=== PATIENT | female | born 1950 | race Caucasian/White ===

== ENCOUNTER 2020-04-29 11:17 | Outpatient (NON) | payer MEDICARE, SELFPAY ==
[2020-04-29 11:33] LABS: Basophils Absolute Auto 0.02 K/mm3 (0.00-0.10); Basophils Percent Auto 0.2 % (0.0-1.0); Hematocrit 34.3 % (35.0-42.0); Hemoglobin 12.5 g/dL (11.7-13.8); Immature Granulocyte Absolute 0.08 K/mm3 (0.00-0.00); Immature Granulocyte Percent A 0.9 % (0.0-0.0); Lymphocytes Absolute Auto 0.15 K/mm3 (1.10-4.50); Lymphocytes Percent Auto 1.7 % (18.0-42.0); Mean Corpuscular HGB Conc 36.4 g/dL (32.0-36.0); Mean Corpuscular Hemoglobin 32.3 pg (27.0-31.0); Mean Corpuscular Volume 88.6 fL (78.0-102.0); Mean Platelet Volume 10.2 fl (9.2-11.8); Monocytes Absolute Auto 0.53 K/mm3 (0.10-0.90); Monocytes Percent Auto 5.9 % (2.0-11.0); Neutrophils Absolute Auto 8.2 K/mm3 (1.7-7.2); Neutrophils Percent Auto 91.3 % (50.0-70.0); Platelet Count Result 154 K/mm3 (150-420); Red Blood Count 3.87 M/mm3 (4.20-5.40); Red Cell Distribution Width 12.4 % (11.6-14.4)
[2020-04-29 11:49] LABS: Alanine Aminotransferase 24 U/L (14-59); Alkaline Phosphatase 49 U/L (46-116); Anion Gap 14.2 mmol/L (7-16); Aspartate Amino Transferase 39 U/L (15-37); Bilirubin,Total 1.3 mg/dL (0.00-1.00); Blood Urea Nitrogen 35 mg/dL (7-18); Calcium 8.3 mg/dL (8.5-10.1); Carbon Dioxide 27 mmol/L (21-32); Chloride 84 mmol/L (98-108); Estimated Glomerular Filt Rate 22; Glucose 127 mg/dL (70-99); Osmolality Calculated 264 mOsm/kg (285-295); Potassium 3.2 mmol/L (3.5-5.1); Sodium 122 mmol/L (136-145); Total Protein 6.3 g/dL (6.4-8.2)
== END 2020-04-29 11:18 ==
LOC: CHSLAB 11:18
PROVIDERS: PCP Nurse Practitioner Family; Visit Provider Nurse Practitioner Family
DX: K52.9 Noninfective gastroenteritis and colitis, unspecified (principal); R53.1 Weakness
CPT/HCPCS: 36415; 80053; 83735; 85025

== ENCOUNTER 2020-04-29 14:07 | Inpatient (IN) | payer MEDICARE, SELFPAY ==
[2020-04-29] VITALS (11 sets, daily range): BP systolic 76–109; BP diastolic 38–55; PULSE 74–89; RESP 12–18; TEMP 36.9–37.5; O2SAT 96–99; BMI 35.0
--- NOTE | ~2020-04-29 | CT_ITS ---
EXAMINATION: CT brain wo con INDICATION: Generalized weakness COMPARISON: None TECHNIQUE: Standard unenhanced head CT. The dose-length product (DLP) was 605.33 mGy-cm. The mA was a djusted according to patient size. Iterative reconstruction technique was employed. FINDINGS: There is no acute intraparenchymal hemorrhage. No evidence of mass lesion. No evidence of a cute infarction. There is mild periventricular and subcortical hypodensity probably related to small vessel ischemic disease. There is mild prominence of the sulci and ventricles related to cerebral atr ophy. Intracranial calcified cerebral atherosclerosis is noted. There are no extra-axial collections. There is no mass effect or midline shift. Changes in the globes are likely from ocular lens surgery. The visualized sinuses and mastoid air cells are well aerated. IMPRESSION: 1. No acute intracranial abnormality. 2. Age related findings. Reviewed, dictated and finalized at location A.
--- NOTE | 2020-04-29 15:03 | ED.RECABL ---
HPI - Recheck/Abnormal Lab/Rx General Chief Complaint: Recheck/Abnormal Lab/Rx Stated Complaint: sent by for bad lab results Time Seen by Provider: 04/29/20 15:04 Source: patient Mode of arrival: wheelchair Limitations: no limitations History of Present Illness HPI narrative: 69-year-old woman with a history of hypertension comes in today after being seen at her primary care office. She was fine to have hyponatremia, hypomagnesemia, hypokalemia and acute renal injury. She states that she ate a salad at a restaurant 4 days ago and 3 days ago she developed vomiting, weakness and diarrhea. She states that she has had no vomiting since then but she has had diarrhea daily. She denies rash, blood in her vomitus, melena, blood in her stools, abdominal pain, syncope, and fever. MD complaint: abnormal lab Initial visit (ago): day(s) ( Today) Initial visit for: other ( diarrhea, weakness) Returns today for: called because of abnormal lab/test Symptoms since prior visit: no new symptoms Context: called for abnormal lab result Associated symptoms: malaise Related Data Home Medications Medication Instructions Recorded Confirmed atorvastatin 40 mg tablet 40 mg PO DAILY 11/13/19 04/29/20 calcium carbonate-vitamin D3 600 2 tablet PO DAILY tablet 11/13/19 04/29/20 mg(1,500 mg)-400 unit chewable tablet metoprolol tartrate 25 mg tablet 25 mg PO BID tablet 11/13/19 04/29/20 vitamin B complex 1 tablet PO DAILY 04/29/20 04/29/20 Allergies Allergy/AdvReac Type Severity Reaction Status Date / Time No Known Allergies Allergy Verified 04/29/20 10:38 Review of Systems Constitutional: Constitutional: Denies chills, Reports fatigue, Denies fever(s) and Reports weakness Eyes: Eyes: Denies change in vision and Denies photophobia ENT: Denies dysphagia, Denies nasal congestion and Denies sore throat Cardiovascular: Cardiovascular: Denies chest pain and Denies radiating jaw, neck or arm pain Respiratory: Respiratory: Denies cough, Denies dyspnea and Denies wheezing Gastrointestinal: Gastrointestinal: Reports as per HPI, Denies abdominal pain, Reports diarrhea, Reports nausea and Reports vomiting Genitourinary: Genitourinary: Denies hematuria, Denies nocturia and Denies dysuria Musculoskeletal: Musculoskeletal: Denies back pain, Denies arthralgias and Denies joint swelling Integumentary/Breasts: Skin/Breast: Denies pruritus, Denies erythema and Denies rash Neurologic: Reports vertigo, Reports dizziness and Reports syncope Endocrine: Endocrine: Denies polydipsia and Denies polyuria Hematologic/Lymphatic: Hematologic/Lymphatic: Denies easy bleeding and Denies easy bruising Allergic/Immunologic: Allergic/Immunologic: Denies lip swelling and Denies wheezing PMFSH Past Medical History Medical History BMI 34.0-34.9,adult Cervical arthritis with myelopathy HTN (hypertension) Hyperlipemia Macular degeneration Osteoporosis Surgical History Surgical History Fusion of spine 06/20/2017 Hx of colonoscopy 2014 Social History Social History Smoking status: Never smoker Tobacco type: cigarettes Alcohol intake: never Substance use: never Substance use type: does not use Gender identity (if verbalized by the patient): Female Exam Const: General: no acute distress and alert Orientation/consciousness: patient oriented x3 Limitations: no limitations HENMT: Head: normal to inspection Ears: external ears normal, TM's normal bilaterally and EAC's normal Mouth: Yes moist mucous membranes Throat: posterior oropharynx normal Eyes: Conjunctivae: conjunctivae normal Pupils: Equal, round and reactive pupils present EOM: EOMs intact bilaterally Resp: Effort & Inspection: normal respiratory effort and not labored Auscultation: clear to auscultation b
--- NOTE | 2020-04-29 15:14 | ECG_ITS ---
Measurements Intervals [place] Rate: 84 P: 50 IL: 164 QRS: 8 QRSD: 91 T: 49 QT: 349 QTc: 413 Interpretive Statements SINUS RHYTHM BORDERLINE R WAVE PROGRESSION, ANTERIOR LEADS BASELINE ARTIFACT- I, II, III, AVR, AVF BORDERLINE ECG Electronically Signed On 04-29-2020 16:10:51 CDT by Kenney Wynn D.O.
[2020-04-29 15:34] LABS: Phosphorus 2.4 mg/dL (2.6-4.7)
[2020-04-29] MEDS: KCL 20 MEQ/SW 100 ML 100 ML 50 MEQ IVPB ×2 (16:13→21:50)
[2020-04-29] MEDS: SODIUM CHLORIDE 0.9% IV 1,000 ML 150 ML IV CONT (16:13)
[2020-04-29 16:45] LABS: Lactic Acid Reflex 1.6 mmol/L (0.4-2.0)
--- NOTE | 2020-04-29 17:45 | PC.NURSE ---
1700 erp aware of low bp upon arrival. no new orders, cont as ordered.
--- NOTE | 2020-04-29 17:45 | PC.NURSE ---
Patient states she has trouble urinating when she does not feel comfortable. Instructed patient need for urine and bowl sample. Encouraged fluid intake.
[2020-04-29 18:10] LABS: Anion Gap 13.2 mmol/L (7-16); Blood Urea Nitrogen 42 mg/dL (7-18); Calcium 8.2 mg/dL (8.5-10.1); Carbon Dioxide 29 mmol/L (21-32); Chloride 82 mmol/L (98-108); Estimated CRCL calculation 19 ml/min; Estimated Glomerular Filt Rate 18; Glucose 126 mg/dL (70-99); Osmolality Calculated 264 mOsm/kg (285-295); Potassium 3.2 mmol/L (3.5-5.1); Sodium 121 mmol/L (136-145)
[2020-04-29] MEDS: METOPROLOL TARTRATE 25 MG TABLET PO (18:11)
[2020-04-29] MEDS: CALCIUM/VITAMIN D 250 MG TABLET 2 TABLET PO (18:11)
--- NOTE | 2020-04-29 18:20 | PC.NURSE ---
Patient transported off of floor, via wheelchair for head CT
--- NOTE | 2020-04-29 18:30 | PC.NURSE ---
Patient transported back to floor, via wheelchair
[2020-04-29] MEDS: MAGNESIUM SULF 2 GM/WATER 50ML 2 GM/50 ML BAG IVPB (18:31)
[2020-04-29] MEDS: SODIUM CHLORIDE 0.9% IV 250 ML 500 ML IV CONT (19:41)
[2020-04-29] MEDS: ACETAMINOPHEN 325 MG TABLET 650 MG PO (20:24)
[2020-04-29 20:49] LABS: Add Urine Microscopic? YES; Appearance Urine Sl Cloudy (Clear); Bilirubin Urine 1+ (Negative); Blood Urine Negative (Negative); Color Urine Yellow (Yellow); Glucose Urine UA Negative (Negative); Ketones Urine Negative (Negative); Leukocyte Esterase Ur Negative (Negative); Nitrate Urine Negative (Negative); Protein Urine Trace (Negative); Urobilinogen Urine 0.2 mg/dL (0.2-1.0)
[2020-04-29 20:54] LABS: Potassium Urine Random 60.1 mmol/L (12-62); Sodium Urine Random 7 mmol/L (20-110)
[2020-04-29 20:55] LABS: Amorphous Sediment Urine Moderate; Bacteria Urine 1+ /hpf; RBC Urine 0-2 /hpf (0-2); Squamous Epithelial Cell Urine Few /hpf (Few); WBC Urine 0-3 /hpf (0-3)
[2020-04-29 21:18] LABS: Anion Gap 11.9 mmol/L (7-16); Blood Urea Nitrogen 47 mg/dL (7-18); Calcium 7.8 mg/dL (8.5-10.1); Carbon Dioxide 27 mmol/L (21-32); Chloride 85 mmol/L (98-108); Estimated CRCL calculation 20 ml/min; Estimated Glomerular Filt Rate 19; Glucose 127 mg/dL (70-99); Magnesium 1.8 mg/dL (1.8-2.4); Osmolality Calculated 266 mOsm/kg (285-295); Potassium 2.9 mmol/L (3.5-5.1); Sodium 121 mmol/L (136-145)
[2020-04-29] MEDS: SODIUM CHLORIDE 0.9% IV 500 ML IV CONT (21:50)
[2020-04-30] VITALS (10 sets, daily range): BP systolic 105–136; BP diastolic 45–72; PULSE 67–94; RESP 14–18; TEMP 36.1–39.1; O2SAT 95–99
[2020-04-30] MEDS: KCL 20 MEQ/SW 100 ML 100 ML 30 MEQ IVPB (00:01)
--- NOTE | 2020-04-30 00:02 | PC.NURSE ---
Patient reporting that potassium rider is burning quite severely, rate decreased to 30 ml/hr and patient states that the burning has eased up and is now tolerable.
[2020-04-30 00:44] LABS: Anion Gap 11.9 mmol/L (7-16); Blood Urea Nitrogen 46 mg/dL (7-18); Calcium 7.8 mg/dL (8.5-10.1); Carbon Dioxide 27 mmol/L (21-32); Chloride 87 mmol/L (98-108); Estimated CRCL calculation 21 ml/min; Estimated Glomerular Filt Rate 20; Glucose 110 mg/dL (70-99); Osmolality Calculated 268 mOsm/kg (285-295); Potassium 2.9 mmol/L (3.5-5.1); Sodium 123 mmol/L (136-145)
[2020-04-30] MEDS: SODIUM CHLORIDE 0.9% IV 500 ML IV CONT (02:25)
[2020-04-30] MEDS: KCL 20 MEQ/SW 100 ML 100 ML 50 MEQ IVPB (02:26)
[2020-04-30 05:37] LABS: Basophils Absolute Auto 0.01 K/mm3 (0.00-0.10); Basophils Percent Auto 0.2 % (0.0-1.0); Eosinophils Absolute Auto 0.01 K/mm3 (0.02-0.50); Eosinophils Percent Auto 0.2 % (1.0-6.0); Hematocrit 30.2 % (35.0-42.0); Immature Granulocyte Absolute 0.04 K/mm3 (0.00-0.00); Immature Granulocyte Percent A 0.8 % (0.0-0.0); Immature Platelet Fraction Pct 3.5 % (1.0-7.0); Lymphocytes Absolute Auto 0.09 K/mm3 (1.10-4.50); Lymphocytes Percent Auto 1.9 % (18.0-42.0); Mean Corpuscular HGB Conc 36.4 g/dL (32.0-36.0); Mean Corpuscular Hemoglobin 32.7 pg (27.0-31.0); Mean Corpuscular Volume 89.9 fL (78.0-102.0); Mean Platelet Volume 10.2 fl (9.2-11.8); Monocytes Absolute Auto 0.46 K/mm3 (0.10-0.90); Monocytes Percent Auto 9.6 % (2.0-11.0); Neutrophils Absolute Auto 4.2 K/mm3 (1.7-7.2); Neutrophils Percent Auto 87.3 % (50.0-70.0); Platelet Count Result 128 K/mm3 (150-420); Red Blood Count 3.36 M/mm3 (4.20-5.40); Red Cell Distribution Width 12.6 % (11.6-14.4); White Blood Count 4.8 K/mm3 (4.8-10.8)
[2020-04-30 05:56] LABS: Alanine Aminotransferase 27 U/L (14-59); Albumin Level 2.5 g/dL (3.4-5.0); Alkaline Phosphatase 41 U/L (46-116); Anion Gap 14.5 mmol/L (7-16); Aspartate Amino Transferase 44 U/L (15-37); Bilirubin,Total 0.8 mg/dL (0.00-1.00); Blood Urea Nitrogen 41 mg/dL (7-18); Calcium 7.8 mg/dL (8.5-10.1); Carbon Dioxide 23 mmol/L (21-32); Chloride 91 mmol/L (98-108); Estimated CRCL calculation 28 ml/min; Estimated Glomerular Filt Rate 29; Glucose 118 mg/dL (70-99); Magnesium 1.8 mg/dL (1.8-2.4); Osmolality Calculated 271 mOsm/kg (285-295); Phosphorus 2.1 mg/dL (2.6-4.7); Potassium 3.5 mmol/L (3.5-5.1); Sodium 125 mmol/L (136-145); Total Protein 5.9 g/dL (6.4-8.2)
--- NOTE | 2020-04-30 07:59 | PM.IMHP ---
H&P: HPI History of Present Illness Chief complaint: hyponatremia <Denise Lei NP - Last Filed: 04/30/20 09:45> Narrative: Abby Vazquez is a 69 year old female Admitted through the ED yesterday due to her abnormal labs from her primary care office. She has been having vomiting, weakness, and diarrhea for the past 4-5 days, after eating multiple [place] foods, including salads and bagna cauda made from garlic, olive oil, and anchovies. She initially had vomiting for 1-2 days, and then diarrhea daily after that. Urine and stool cultures ordered. She said that she had gotten so weak at home, that she was having to use her father's walker just to get to and from the bathroom. She states that she had felt very weak in her legs, denied any charley horses or cramping of her legs. She does have chronic back pain and a history of hypertension. . Her lab work showed that she has hyponatremia, hypomagnesemia, hyponatremia, hypophosphatemia, acute dehydration, and acute kidney failure. Holding her Lisinoprill-HCTZ at this time. She denies having any rash, any blood in her emesis or stools. Today, she does not have any abdominal pain today or any nausea, no pain with deep palpation, no fevers noted and her white count is normal at 4.8. Since her admission yesterday she has not had any nausea or vomiting or diarrhea. She has found it difficult to urinate, and a Fraga was placed upon arriving at the floor. Her EKG was sinus rhythm with HR in the 80s. She denies chest pain, SOB, chest pressure, or abdominal pain at this time. Wiill continue IVFs and anglican of electrolytes, treat any diarrhea/vomiting, while monitoring renal function. <Denise Lei NP - Last Filed: 04/30/20 09:45> Review of Systems Review of Systems: All systems reviewed & are unremarkable except as noted in HPI and below <Denise Lei NP - Last Filed: 04/30/20 09:45> Constitutional: Constitutional: Reports as per HPI, Denies chills, Reports fatigue, Denies fever(s) and Reports weakness <Denise Lei NP - Last Filed: 04/30/20 09:45> Eyes: Eyes: Reports as per HPI, Denies change in vision and Denies photophobia <Denise Lei EXPENSE CLERK - Last Filed: 04/30/20 09:45> ENT: Reports as per HPI, Denies dysphagia, Reports vertigo, Reports dizziness, Denies lip swelling, Denies nasal congestion and Denies sore throat <Denise Lei EXPENSE CLERK - Last Filed: 04/30/20 09:45> Cardiovascular: Cardiovascular: Reports as per HPI, Denies chest pain, Reports syncope, Denies radiating jaw, neck or arm pain and Denies dyspnea <Denise Lei EXPENSE CLERK - Last Filed: 04/30/20 09:45> Respiratory: Respiratory: Reports as per HPI, Denies cough, Denies dyspnea and Denies wheezing <Denise Lei, EXPENSE CLERK - Last Filed: 04/30/20 09:45> Gastrointestinal: Gastrointestinal: Reports as per HPI, Denies abdominal pain, Denies dysphagia, Reports diarrhea, Reports nausea and Reports vomiting <Denise Lei EXPENSE CLERK - Last Filed: 04/30/20 09:45> Genitourinary: Genitourinary: Denies hematuria, Denies nocturia and Denies dysuria <Denise Lei, EXPENSE CLERK - Last Filed: 04/30/20 09:45> Musculoskeletal: Musculoskeletal: Denies back pain, Denies arthralgias and Denies joint swelling <Denise Lei EXPENSE CLERK - Last Filed: 04/30/20 09:45> Integumentary/Breasts: Skin/Breast: Denies pruritus, Denies erythema and Denies rash <Denise Lei EXPENSE CLERK - Last Filed: 04/30/20 09:45> Neurologic: Reports vertigo, Reports dizziness, Reports syncope and Reports weakness <Denise Lei EXPENSE CLERK - Last Filed: 04/30/20 09:45> Endocrine: Endocrine: Reports fatigue, Denies polydipsia and Denies polyuria <Denise Lei EXPENSE CLERK - Last Filed: 04/30/20 09:45> Hematologic/Lymphatic: Hematologic/Lymphatic: Denies easy bleeding and Denies easy bruising <Denise Lei EXPENSE CLERK - Last Filed: 04/30/20 09:45> Allergic/Immunologic: Allergic/Immunologic: Denies lip swelling and Denies wheezing <Denise Lei, EXPENSE CLERK - Last Filed: 04/30/20 09:45> [facility] Past Medical H
[2020-04-30] MEDS: SODIUM CHLORIDE 0.9% IV 1,000 ML 150 ML IV CONT ×3 (08:26→23:49)
[2020-04-30] MEDS: MAGNESIUM OXIDE 400 MG TABLET PO (08:27)
[2020-04-30] MEDS: METOPROLOL TARTRATE 25 MG TABLET PO ×2 (08:27→20:36)
[2020-04-30] MEDS: ATORVASTATIN 40 MG TABLET PO (08:27)
[2020-04-30] MEDS: CALCIUM/VITAMIN D 250 MG TABLET 2 TABLET PO (08:27)
[2020-04-30] MEDS: VITAMIN B COMPLEX CAPSULE 1 CAP PO (08:27)
[2020-04-30] MEDS: POTASSIUM CHLORIDE 20 MEQ PACKET (FOR LIQUID) 40 MEQ PO ×2 (08:27→17:18)
[2020-04-30] MEDS: POTASSIUM/PHOSPHORUS/SODIUM 1.5 GM PACKET 1 PACKET PO (09:36)
[2020-04-30] MEDS: SACCHAROMYCES BOULARDII 250 MG CAPSULE PO ×2 (09:36→17:19)
--- NOTE | 2020-04-30 18:35 | PC.NURSE ---
PT TEMPERATURE NOW 102.3F PT DENIES FEELING FEVERISH, OR CHILLS. PT GIVEN APAP ORDERED. CHARGE NURSE MADE AWARE. SEE NOTES.
[2020-04-30] MEDS: ACETAMINOPHEN 325 MG TABLET 650 MG PO (18:45)
--- NOTE | 2020-04-30 18:50 | PC.NURSE ---
notified that patient was incont of urine earlier this shift and is now running 102 temp. New order received for UA.
[2020-05-01] VITALS: BP 143/73; PULSE 82; RESP 18; TEMP 36.2; O2SAT 97
[2020-05-01 02:44] LABS: Appearance Urine Clear (Clear); Bilirubin Urine Negative (Negative); Color Urine Yellow (Yellow); Glucose Urine UA Negative (Negative); Ketones Urine Negative (Negative); Leukocyte Esterase Ur Trace LEU/UL (Negative); Nitrate Urine Negative (Negative); Protein Urine Negative (Negative); Specific Grav Ur <= 1.005 (1.010-1.020); Urobilinogen Urine 0.2 mg/dL (0.2-1.0)
[2020-05-01 02:50] LABS: Add Urine Microscopic? YES; Bacteria Urine Trace /hpf; Blood Urine Trace-Intact (Negative); RBC Urine 0-2 /hpf (0-2); Squamous Epithelial Cell Urine Rare /hpf (Few); WBC Urine 0-3 /hpf (0-3)
[2020-05-01 04:00] VITALS: BP 156/84; PULSE 99; RESP 20; TEMP 37; O2SAT 96
--- NOTE | 2020-05-01 05:01 | PC.NURSE ---
Patient ambulated to the bathroom twice through the night. She ambulated independently with nurse supervision. Her gait is steady. She had a small amount of urinary incontinence when she used the bathroom at 0200. She states that she has been having urge incontinence at times especially at night. Patient was provided with a pull up depend.
[2020-05-01 06:01] LABS: Alanine Aminotransferase 109 U/L (14-59); Albumin Level 2.4 g/dL (3.4-5.0); Alkaline Phosphatase 111 U/L (46-116); Anion Gap 13.3 mmol/L (7-16); Aspartate Amino Transferase 172 U/L (15-37); Bilirubin,Total 0.8 mg/dL (0.00-1.00); Blood Urea Nitrogen 24 mg/dL (7-18); Calcium 7.8 mg/dL (8.5-10.1); Carbon Dioxide 26 mmol/L (21-32); Chloride 97 mmol/L (98-108); Estimated CRCL calculation 42 ml/min; Estimated Glomerular Filt Rate 47; Glucose 112 mg/dL (70-99); Magnesium 1.6 mg/dL (1.8-2.4); Osmolality Calculated 281 mOsm/kg (285-295); Phosphorus 1.9 mg/dL (2.6-4.7); Potassium 3.3 mmol/L (3.5-5.1); Sodium 133 mmol/L (136-145)
[2020-05-01] MEDS: SODIUM CHLORIDE 0.9% IV 1,000 ML 150 ML IV CONT (06:35)
--- NOTE | 2020-05-01 06:45 | PC.NURSE ---
Blood pressure rechecked after receiving morning dose of Midodrine. Sitting blood pressure was 107/38 in the left arm Standing was 77/38 in the left arm. Patient reports feeling slightly light headed. Charge nurse notified.
[2020-05-01] MEDS: ACETAMINOPHEN 325 MG TABLET 650 MG PO (07:58)
[2020-05-01 07:59] VITALS: PULSE 78
[2020-05-01] MEDS: METOPROLOL TARTRATE 25 MG TABLET PO (07:59)
[2020-05-01] MEDS: ATORVASTATIN 40 MG TABLET PO (07:59)
[2020-05-01] MEDS: CALCIUM/VITAMIN D 250 MG TABLET 2 TABLET PO (07:59)
[2020-05-01] MEDS: VITAMIN B COMPLEX CAPSULE 1 CAP PO (07:59)
[2020-05-01] MEDS: MAGNESIUM OXIDE 400 MG TABLET PO (07:59)
[2020-05-01 08:00] VITALS: BP 141/66; PULSE 91; RESP 20; TEMP 37.9
[2020-05-01] MEDS: SACCHAROMYCES BOULARDII 250 MG CAPSULE PO (08:00)
[2020-05-01] MEDS: POTASSIUM CHLORIDE 20 MEQ PACKET (FOR LIQUID) 40 MEQ PO (08:00)
[2020-05-01 09:16] LABS: GGT 180 U/L (5-55)
[2020-05-01 10:27] LABS: Erythrocyte Sedimentation Rate 50 mm/hr (0-20)
--- NOTE | 2020-05-01 11:07 | PM.DS ---
DS: Admitting Diagnosis Admitting Diagnosis Admitting Diagnosis: Dehydration DS: Discharge Diagnosis Discharge Diagnosis (1) Acute dehydration: Code(s): E86.0 - Dehydration Status: Acute Assessment and Plan: resolved secondary to nausea vomiting and diarrhea possibly caused by viral gastritis versus food poisoning possibly food poisoning vs. C.Diff infection vs. salmonella vs. heat stroke vs. viral gastritis electrolyte imbalance will get patient's supplements (2) Hypokalemia: Code(s): E87.6 - Hypokalemia Status: Acute Assessment and Plan: K 2.9 at admission today 3.3 patient will discharge home with 3 day supply of 20 mEq of potassium and repeat and 4 days patient's primary care physicians Willard CARCASS WASHER notified and (3) Acute hyponatremia: Code(s): E87.1 - Hypo-osmolality and hyponatremia Status: Acute Assessment and Plan: improved sodium 133 encouraged to hydrate self (4) Diarrhea: Qualifiers: Diarrhea type: unspecified type Qualified Code(s): R19.7 - Diarrhea, unspecified Code(s): R19.7 - Diarrhea, unspecified Status: Acute Assessment and Plan: resolved possibly secondary to viral gastritis versus food poisoning (5) Acute renal failure: Qualifiers: Acute renal failure type: unspecified Qualified Code(s): N17.9 - Acute kidney failure, unspecified Code(s): N17.9 - Acute kidney failure, unspecified Status: Acute Assessment and Plan: secondary to dehydration renal function has improved repeat lab in 4 days i (6) Elevated liver enzymes: Code(s): R74.8 - Abnormal levels of other serum enzymes Status: Acute Assessment and Plan: possibly secondary to the alcohol use versus medication hepatic panel workup pending, PCP made aware ultrasound ordered as outpatient results will be sent to PCP patient educated on alcohol cessation atorvastatin discontinued DS: Summary Hospital Course Hospital Course: Abby Vazquez is a 69 year old female Admitted through the ED due to her abnormal labs from her primary care office. She has been having vomiting, weakness, and diarrhea for the past 4-5 days, after eating multiple [place]ese foods, including salads and bagna cauda made from garlic, olive oil, and anchovies. She initially had vomiting for 1-2 days, and then diarrhea daily after that. today her nausea vomiting, diarrhea ,weakness has resolved and she will discharge. during this hospital stay patient liver enzymes were elevated. I contacted her primary care physician Willard CARCASS WASHER to discuss follow-up diagnostic test. I ordered a hepatic panel workup before her discharge and she will receive an outpatient ultrasound with results going to Willard. patient magnesium and potassium levels were slightly low she will also go home with 3 days potassium and magnesium with a repeat lab on the 4 day with results going to her PCP. patient noted that she drinks 3-4 glasses of vodka with a mixer daily. she was educated on limiting her alcohol use. also spoke with willard prescription for atorvastatin . due to her elevated liver enzyme, Willard CARCASS WASHER agreed to discontinue the use atorvastatin and will re-evaluate the use of this medication on her next visit. Patient able to tolerate all meals , slept well and ambulate at baseline. Patient denies SOB, CP, palpitation, extremity numbness, lightheadness, dizziness, constipation, diarrhea, chills or fever. Patient agree that they are ready for discharge and discharge plan. Time Spent with Patient Time attestation: Total time spent providing and/or coordinating discharge services:60 Exam Narrative: Exam Narrative: General: A well-developed, well-nourished male sitting up in bed no acute distress. HEENT: Normocephalic, atraumatic. PERRL, EOMI. Sclerae anicteric. Oral mucosa moist. Oropharynx clear. Neck: Supple. Res
[2020-05-01 11:10] LABS: Iron 11 ug/dL (50-170); Percent Iron Saturation 6 % (12-57)
[2020-05-01 11:23] LABS: Acetaminophen 8 ug/mL (10-30); Alanine Aminotransferase 113 U/L (14-59); Albumin Level 2.5 g/dL (3.4-5.0); Alkaline Phosphatase 113 U/L (46-116); Ammonia 54 umol/L (11-32); Aspartate Amino Transferase 163 U/L (15-37); Bilirubin Direct 0.4 mg/dL (0-0.2); Bilirubin,Total 0.7 mg/dL (0.00-1.00); Folic Acid 4.3 ng/mL (8.6->20); Total Protein 6.1 g/dL (6.4-8.2)
[2020-05-01 11:28] LABS: CRP 17.4 mg/dL (0.0-0.9); Ferritin > 1000 ng/mL (8-252); Vitamin B12 > 2000 pg/mL (193-986)
--- NOTE | 2020-05-01 12:19 | PCOTNOTE ---
Upon arrival of OT, patient just received lunch tray and eating. Nursing reports that patient is being discharged this afternoon. MS See evaluation for patient's skills. MS
[2020-05-01 12:25] LABS: Bilirubin Direct 0.4 mg/dL (0-0.2); Bilirubin Indirect 0.3 mg/dL (0-1.0)
[2020-05-03 04:39] LABS: Osmolality, Urine 286 mOsm/kg (50-1200)
[2020-05-04 09:54] LABS: Actin Antibody (IgG) <20 U (<20)
[2020-05-04 14:32] LABS: Ceruloplasmin 45 mg/dL (18-53)
[2020-05-04 19:00] LABS: Hepatitis A Antibody IgM Nonreactive; Hepatitis B Core Antibody Nonreactive (Nonreactive); Hepatitis B Surface Antibody Nonreactive (Nonreactive)
[2020-05-05 14:12] LABS: Mitochondrial (M2) Ab (IgG) <=20.0 U (<=20.0)
== END 2020-05-01 12:30 | disposition home or self-care (01) | DRG 683 ==
LOC: CHSED 15:31 → CHS2ND 04-30 07:20
PROVIDERS: Emergency Medicine; Nurse Practitioner; Admitting Provider Emergency Medicine; Emergency Provider Emergency Medicine; PCP Nurse Practitioner Family; Visit Provider Emergency Medicine
DX: E83.42 Hypomagnesemia; R19.7 Diarrhea, unspecified; R11.10 Vomiting, unspecified; N17.9 Acute kidney failure, unspecified; M47.12 Other spondylosis with myelopathy, cervical region; E87.1 Hypo-osmolality and hyponatremia; E86.0 Dehydration; E87.6 Hypokalemia; I10 Essential (primary) hypertension; E78.5 Hyperlipidemia, unspecified; M81.0 Age-related osteoporosis without current pathological fracture; H35.30 Unspecified macular degeneration
CPT/HCPCS: 36415; 70450; 80048; 80053; 80076; 80307; 81001; 82104; 82140; 82248; 82390; 82607; 82728; 82746; 82977; 83516; 83520; 83540; 83550; 83605; 83735; 83935; 84100; 84133; 84300; 85025; 85055; 85652; 86038; 86140; 86705; 86706; 87040; 87086; 93005; 97110; 97161; 97165; 97530; 99283; 99285; A9270; J3475; J3480; J7030; J7040; J7050

== ENCOUNTER 2020-05-27 10:37 | Outpatient (CLI) | payer MEDICARE, SELFPAY ==
--- NOTE | ~2020-05-27 | XR_ITS ---
XR ankle LT 2V DATE: 05/27/2020 11:27 INDICATION: Left ankle pain TECHNIQUE: 2 views COMPARISON: None FINDINGS: No fracture or dislocation of the ankle or disruption of the ankle mortise. No periosteal r eaction or bone destruction. IMPRESSION: No fracture or dislocation Reviewed, dictated and finalized at location B. IMPRESSION: No fracture or dislocation
[2020-05-27 11:29] LABS: Alanine Aminotransferase 24 U/L (14-59); Albumin Level 3.5 g/dL (3.4-5.0); Alkaline Phosphatase 80 U/L (46-116); Anion Gap 11.6 mmol/L (7-16); Aspartate Amino Transferase 21 U/L (15-37); Bilirubin,Total 0.7 mg/dL (0.00-1.00); Blood Urea Nitrogen 18 mg/dL (7-18); Calcium 9.7 mg/dL (8.5-10.1); Carbon Dioxide 31 mmol/L (21-32); Chloride 99 mmol/L (98-108); Cholesterol 253 mg/dL (0-200); Estimated Glomerular Filt Rate 48; Glucose 134 mg/dL (70-99); HDL Direct 57 mg/dL (40-60); LDL Cholesterol Calculated 175 mg/dL (<130); Magnesium 1.7 mg/dL (1.8-2.4); Osmolality Calculated 287 mOsm/kg (285-295); Potassium 4.6 mmol/L (3.5-5.1); Sodium 137 mmol/L (136-145); Total Protein 7.5 g/dL (6.4-8.2); Triglycerides 107 mg/dL (0-150)
[2020-05-27 14:57] LABS: Hemoglobin A1C 5.7 % (<5.7)
== END 2020-05-27 10:38 | disposition home or self-care (01) ==
PROVIDERS: PCP Nurse Practitioner Family; Visit Provider Nurse Practitioner Family
DX: M25.579 Pain in unspecified ankle and joints of unspecified foot (principal); E87.1 Hypo-osmolality and hyponatremia; Z00.00 Encounter for general adult medical examination without abnormal findings; E83.42 Hypomagnesemia; R73.09 Other abnormal glucose; N17.9 Acute kidney failure, unspecified; E78.5 Hyperlipidemia, unspecified; I10 Essential (primary) hypertension
CPT/HCPCS: 36415; 73600; 80053; 80061; 83036; 83735

== ENCOUNTER 2020-06-20 10:50 | Outpatient (CLI) | payer MEDICARE, SELFPAY ==
[2020-06-20 11:58] LABS: Alanine Aminotransferase 21 U/L (14-59); Albumin Level 3.6 g/dL (3.4-5.0); Alkaline Phosphatase 71 U/L (46-116); Anion Gap 7 mmol/L (8-16); Aspartate Amino Transferase 19 U/L (15-37); Bilirubin,Total 0.6 mg/dL (0.00-1.00); Blood Urea Nitrogen 18 mg/dL (7-18); Calcium 9.8 mg/dL (8.5-10.1); Carbon Dioxide 30 mmol/L (21-32); Chloride 101 mmol/L (98-108); Estimated Glomerular Filt Rate 60; Glucose 100 mg/dL (70-99); Osmolality Calculated 287 mOsm/kg (285-295); Potassium 4.6 mmol/L (3.5-5.1); Sodium 138 mmol/L (136-145); Total Protein 7.3 g/dL (6.4-8.2)
== END 2020-06-20 10:51 | disposition home or self-care (01) ==
LOC: CHSLAB 10:51
PROVIDERS: PCP Nurse Practitioner Family; Visit Provider Nurse Practitioner Family
DX: E87.1 Hypo-osmolality and hyponatremia (principal)
CPT/HCPCS: 36415; 80053

== ENCOUNTER 2021-02-26 11:06 | Outpatient (CLI) | payer MEDICARE, SELFPAY ==
--- NOTE | ~2021-02-26 | XR_ITS ---
XR lumbar spine 2-3V DATE: 02/26/2021 11:35 INDICATION: Low back pain radiating to both hips TECHNIQUE: AP, lateral, coned lateral lumbosacral views COMPARISON: 05/30/2012 lumbar spine FINDINGS: There is moderate loss of interspace height at L1-2, L2-3 and L4-5. There are very prominen t bridging osteophytes at L1-L4. There is osteopenia. The included lower thoracic and lumbar pedicles are intact. No fracture or bone destruction is eviden t. The sacroiliac joints are intact. Extensive calcification of the abdominal aorta and iliac arteries. IMPRESSION: Osteopenia Degenerative changes Reviewed, dictated and finalized at location A.
[2021-02-26 11:19] LABS: Basophils Absolute Auto 0.04 K/mm3 (0.00-0.10); Basophils Percent Auto 0.5 % (0.0-1.0); Eosinophils Absolute Auto 0.08 K/mm3 (0.02-0.50); Eosinophils Percent Auto 0.9 % (1.0-6.0); Hematocrit 40.9 % (35.0-42.0); Hemoglobin 13.4 g/dL (11.7-13.8); Immature Granulocyte Absolute 0.03 K/mm3 (0.00-0.00); Immature Granulocyte Percent A 0.3 % (0.0-0.0); Lymphocytes Absolute Auto 1.26 K/mm3 (1.10-4.50); Lymphocytes Percent Auto 14.5 % (18.0-42.0); Mean Corpuscular HGB Conc 32.8 g/dL (32.0-36.0); Mean Corpuscular Hemoglobin 29.2 pg (27.0-31.0); Mean Corpuscular Volume 89.1 fL (78.0-102.0); Mean Platelet Volume 9.9 fl (9.2-11.8); Monocytes Percent Auto 8.1 % (2.0-11.0); Neutrophils Absolute Auto 6.6 K/mm3 (1.7-7.2); Neutrophils Percent Auto 75.7 % (50.0-70.0); Platelet Count Result 310 K/mm3 (150-420); Red Blood Count 4.59 M/mm3 (4.20-5.40); Red Cell Distribution Width 12.8 % (11.6-14.4); White Blood Count 8.7 K/mm3 (4.8-10.8)
[2021-02-26 13:02] LABS: Alanine Aminotransferase 21 U/L (14-59); Albumin Level 3.8 g/dL (3.4-5.0); Anion Gap 8 mmol/L (8-16); Aspartate Amino Transferase 13 U/L (15-37); Bilirubin,Total 0.8 mg/dL (0.00-1.00); Blood Urea Nitrogen 13 mg/dL (7-18); Carbon Dioxide 30 mmol/L (21-32); Chloride 99 mmol/L (98-108); Cholesterol 252 mg/dL (0-200); Estimated Glomerular Filt Rate > 60; Glucose 91 mg/dL (70-99); HDL Direct 57 mg/dL (40-60); Magnesium 1.6 mg/dL (1.8-2.4); Osmolality Calculated 284 mOsm/kg (285-295); Potassium 4.6 mmol/L (3.5-5.1); Sodium 137 mmol/L (136-145); Total Protein 7.5 g/dL (6.4-8.2); Triglycerides 78 mg/dL (0-150)
[2021-02-26 13:03] LABS: Alkaline Phosphatase 91 U/L (46-116); LDL Cholesterol Calculated 179 mg/dL (<130)
== END 2021-02-26 11:07 | disposition home or self-care (01) ==
LOC: CHSLAB 11:09
PROVIDERS: PCP Nurse Practitioner Family; Visit Provider Nurse Practitioner Family
DX: M54.5 Low back pain (principal); I10 Essential (primary) hypertension; E78.5 Hyperlipidemia, unspecified; E83.42 Hypomagnesemia
CPT/HCPCS: 36415; 72100; 80053; 80061; 83735; 85025

== ENCOUNTER 2022-05-19 09:27 | Outpatient (CLI) | payer MEDICARE, SELFPAY ==
[2022-05-19 09:40] LABS: Basophils Absolute Auto 0.03 K/mm3 (0.00-0.10); Basophils Percent Auto 0.4 % (0.0-1.0); Eosinophils Absolute Auto 0.07 K/mm3 (0.02-0.50); Hemoglobin 14.1 g/dL (11.7-13.8); Immature Granulocyte Absolute 0.03 K/mm3 (0.00-0.00); Immature Granulocyte Percent A 0.4 % (0.0-0.0); Lymphocytes Absolute Auto 1.08 K/mm3 (1.10-4.50); Lymphocytes Percent Auto 14.9 % (18.0-42.0); Mean Corpuscular HGB Conc 33.6 g/dL (32.0-36.0); Mean Corpuscular Hemoglobin 30.8 pg (27.0-31.0); Mean Corpuscular Volume 91.7 fL (78.0-102.0); Mean Platelet Volume 10.1 fl (9.2-11.8); Monocytes Absolute Auto 0.56 K/mm3 (0.10-0.90); Monocytes Percent Auto 7.7 % (2.0-11.0); Neutrophils Absolute Auto 5.5 K/mm3 (1.7-7.2); Neutrophils Percent Auto 75.6 % (50.0-70.0); Platelet Count Result 245 K/mm3 (150-420); Red Blood Count 4.58 M/mm3 (4.20-5.40); Red Cell Distribution Width 12.6 % (11.6-14.4); White Blood Count 7.3 K/mm3 (4.8-10.8)
[2022-05-19 09:55] LABS: Alanine Aminotransferase 17 U/L (14-59); Albumin Level 3.9 g/dL (3.4-5.0); Alkaline Phosphatase 82 U/L (46-116); Anion Gap 8 mmol/L (8-16); Aspartate Amino Transferase 14 U/L (15-37); Bilirubin,Total 0.7 mg/dL (0.00-1.00); Blood Urea Nitrogen 12 mg/dL (7-18); Calcium 9.6 mg/dL (8.5-10.1); Carbon Dioxide 29 mmol/L (21-32); Chloride 97 mmol/L (98-108); Cholesterol 271 mg/dL (0-200); Estimated Glomerular Filt Rate > 60; Glucose 95 mg/dL (70-99); HDL Direct 69 mg/dL (40-60); LDL Cholesterol Calculated 178 mg/dL (<130); Magnesium 1.6 mg/dL (1.8-2.4); Osmolality Calculated 277 mOsm/kg (285-295); Potassium 4.2 mmol/L (3.5-5.1); Sodium 134 mmol/L (136-145); Total Protein 7.9 g/dL (6.4-8.2); Triglycerides 119 mg/dL (0-150)
== END 2022-05-19 09:28 | disposition home or self-care (01) ==
LOC: CHSLAB 09:29
PROVIDERS: PCP Nurse Practitioner Family; Visit Provider Nurse Practitioner Family
DX: E78.5 Hyperlipidemia, unspecified (principal); I10 Essential (primary) hypertension; E83.42 Hypomagnesemia
CPT/HCPCS: 36415; 80053; 80061; 83735; 85025

== ENCOUNTER 2022-06-08 16:14 | Outpatient (NON) | payer MEDICARE, SELFPAY ==
[2022-06-08 16:27] LABS: Add Urine Microscopic? YES; Bilirubin Urine Negative (Negative); Blood Urine 3+ (Negative); Color Urine Light Yellow (Yellow); Glucose Urine UA Negative (Negative); Ketones Urine Negative (Negative); Leukocyte Esterase Ur Trace LEU/UL (Negative); Nitrate Urine Negative (Negative); Protein Urine 1+ (Negative); Urobilinogen Urine 0.2 mg/dL (0.2-1.0); pH Urine 7.5 (5.0-8.0)
[2022-06-08 16:39] LABS: Appearance Urine Slightly Cloudy (Clear); Bacteria Urine 1+ /hpf; RBC Urine 21-50 /hpf (0-2); Squamous Epithelial Cell Urine Few /hpf (Few)
== END 2022-06-08 16:15 | disposition home or self-care (01) ==
LOC: CHSLAB 16:16
PROVIDERS: Visit Provider Nurse Practitioner Family
DX: R39.9 Unspecified symptoms and signs involving the genitourinary system (principal)
CPT/HCPCS: 81001; 87077; 87086; 87088; 87186

== ENCOUNTER 2023-08-10 11:17 | Outpatient (CLI) | payer MEDICARE, SELFPAY ==
[2023-08-10 11:34] LABS: Basophils Absolute Auto 0.04 K/mm3 (0.00-0.10); Basophils Percent Auto 0.6 % (0.0-1.0); Eosinophils Absolute Auto 0.08 K/mm3 (0.02-0.50); Eosinophils Percent Auto 1.2 % (1.0-6.0); Hematocrit 40.1 % (35.0-42.0); Hemoglobin 13.6 g/dL (11.7-13.8); Immature Granulocyte Absolute 0.02 K/mm3 (0.00-0.00); Immature Granulocyte Percent A 0.3 % (0.0-0.0); Lymphocytes Absolute Auto 1.29 K/mm3 (1.10-4.50); Lymphocytes Percent Auto 18.6 % (18.0-42.0); Mean Corpuscular HGB Conc 33.9 g/dL (32.0-36.0); Mean Corpuscular Hemoglobin 31.3 pg (27.0-31.0); Mean Corpuscular Volume 92.4 fL (78.0-102.0); Mean Platelet Volume 9.9 fl (9.2-11.8); Monocytes Absolute Auto 0.56 K/mm3 (0.10-0.90); Monocytes Percent Auto 8.1 % (2.0-11.0); Neutrophils Absolute Auto 4.9 K/mm3 (1.7-7.2); Neutrophils Percent Auto 71.2 % (50.0-70.0); Platelet Count Result 230 K/mm3 (150-420); Red Blood Count 4.34 M/mm3 (4.20-5.40); Red Cell Distribution Width 12.1 % (11.6-14.4); White Blood Count 6.9 K/mm3 (4.8-10.8)
[2023-08-10 12:36] LABS: Hemoglobin A1C 5.4 % (<5.7)
[2023-08-10 12:37] LABS: Alanine Aminotransferase 17 U/L (14-59); Albumin Level 3.9 g/dL (3.4-5.0); Alkaline Phosphatase 78 U/L (46-116); Anion Gap 7 mmol/L (8-16); Aspartate Amino Transferase 15 U/L (15-37); Bilirubin,Total 0.7 mg/dL (0.00-1.00); Blood Urea Nitrogen 11 mg/dL (7-18); Calcium 10.3 mg/dL (8.5-10.1); Carbon Dioxide 30 mmol/L (21-32); Chloride 98 mmol/L (98-108); Cholesterol 200 mg/dL (0-200); Estimated Glomerular Filt Rate > 60; Folic Acid 8.4 ng/mL (8.6->20); Glucose 95 mg/dL (70-99); HDL Direct 68 mg/dL (40-60); LDL Cholesterol Calculated 117 mg/dL (<130); Magnesium 1.5 mg/dL (1.8-2.4); Osmolality Calculated 279 mOsm/kg (285-295); Potassium 4.4 mmol/L (3.5-5.1); Sodium 135 mmol/L (136-145); Triglycerides 73 mg/dL (0-150); Vitamin B12 > 2000 pg/mL (193-986)
[2023-08-10 12:40] LABS: Thyroid Stimulating Hormone Reflex 1.83 u/IU/mL (0.36-3.74)
== END 2023-08-10 11:18 | disposition home or self-care (01) ==
LOC: CHSLAB 11:20
PROVIDERS: PCP Family Medicine; Visit Provider Family Medicine
DX: E11.9 Type 2 diabetes mellitus without complications (principal); E78.5 Hyperlipidemia, unspecified; E83.42 Hypomagnesemia; E53.8 Deficiency of other specified B group vitamins; G62.9 Polyneuropathy, unspecified
CPT/HCPCS: 36415; 80053; 80061; 82607; 82746; 83036; 83735; 84443; 85025

== ENCOUNTER 2023-08-18 12:16 | Outpatient (CLI) | payer MEDICARE, SELFPAY ==
--- NOTE | ~2023-08-18 | DEXA_ITS ---
Bone Density Report Name: DULCE SWIFT Age: 72 Sex: Female Ethnicity: White Date of : 1950 Indication: postmenopausal; screening for osteoporosis; parental hip fracture; height loss; prior fracture; Referring Provider: Eric Don Study: Bone densitometry was performed. Exam Date: August 18, 2023 Accession number: [id number] Bone Density: Region BMD T-score Z-score Classification AP Spine(L1, L2, L4) 1.101 0.6 2.9 Normal Femoral Neck (Left) 0.698 -1.4 0.6 Osteopenia Total Hip (Left) 0.988 0.4 2.1 Normal Femoral Neck (Right) 0.670 -1.6 0.4 Osteopenia Total Hip (Right) 0.938 0.0 1.7 Normal Femoral Neck Mean 0.684 -1.5 0.5 Osteopenia Total Hip Mean 0.963 0.2 1.9 Normal World Health Organization criteria for BMD impression classify patients as: Normal (T-score at or above -1.0), Osteopenia (T-score between -1.0 and -2.5), or Osteoporosis (T-score at or below -2.5). 10-year Fracture Risk: FRAX not reported because: Prior hip or vertebral fracture Clinical Information Provided by Patient: Have had a previous hip or vertebral fracture Has had a low trauma fracture Parent has had a hip fracture Has used the following medications: Vitamin D, Calcium, multi Patient maximum height was 62 Menopause Age: 49 No regular weight bearing exercise Drinks caffeinated beverages Onset of menses at age 13 Number of children 1 Impression: The patient has low bone mass, based on the Right Femoral Neck T-score. The patient has risk factors, including: parental hip fracture, previous fracture. Discussion: INCREASED RISK OF FRACTURE DUE TO HISTORY OF FRACTURE. The patient's previous fracture puts the patient at high risk of a future fracture. In untreated patients, the risk of osteoporotic fracture increases approximately two-fold for each 1.0 SD decrease in T-score. Low bone density is not the only risk factor for fracture; also consider factors such as patient's age, frailty or poor health, risk of falling, risk of injury, previous osteoporotic fracture, family history of osteoporosis, cigarette smoking, low body weight, etc. Not everyone with a low trauma fracture has osteoporosis; osteomalacia and other metabolic bone disorders should also be considered. Patients who have osteoporosis should be evaluated for specific diseases and conditions (secondary causes) that may cause or contribute to bone loss and fracture risk. National Osteoporosis Foundation (NOF) recommends pharmacologic intervention for patients with a prior hip or vertebral fracture regardless of BMD T-score. The patient should follow a healthful lifestyle (good nutrition with adequate calcium and vitamin D, and appropriate weight-bearing exercise). Follow-Up: Consider a repeat BMD and Vertebral Fracture Assessment (VFA) exam in 2 years or sooner if medically necessary, to reassess this patient's status.
--- NOTE | ~2023-08-18 | MM_ITS ---
EXAMINATION: MM screening nickie BI w dennis HISTORY: Screening mammogram TECHNIQUE: Craniocaudal and mediolateral oblique 3-D tomosynthesis images were obtained and synthetic 2-D images were generated. CAD analysis was submitted and interpreted. COMPARISON: 01/16/2019 bilateral screening mammogram BREAST PARENCHYMAL COMPOSITION: There are scattered areas of fibroglandular density. FINDINGS: There is no evidence of suspicious mass, calcification, or architectural distortion to sugg est malignancy in either breast. There has been no suspicious interval change. IMPRESSION: 1. No mammographic evidence of malignancy. 2. Recommend routine screening mammography in one year. BI-RADS Category 1: Negative Reviewed, dictated and finalized at location A.
== END 2023-08-18 12:17 | disposition home or self-care (01) ==
LOC: CHSIMG 12:16
PROVIDERS: PCP Family Medicine; Visit Provider Family Medicine
DX: Z12.31 Encounter for screening mammogram for malignant neoplasm of breast (principal); Z78.0 Asymptomatic menopausal state; M85.89 Other specified disorders of bone density and structure, multiple sites
CPT/HCPCS: 77063; 77067; 77080

== ENCOUNTER 2024-07-19 10:28 | Outpatient (CLI) | payer MEDICARE, SELFPAY ==
[2024-07-19 10:48] LABS: Basophils Absolute Auto 0.03 K/mm3 (0.00-0.10); Basophils Percent Auto 0.3 % (0.0-1.0); Eosinophils Absolute Auto 0.17 K/mm3 (0.02-0.50); Hematocrit 39.4 % (35.0-42.0); Hemoglobin 13.4 g/dL (11.7-13.8); Immature Granulocyte Absolute 0.02 K/mm3 (0.00-0.00); Immature Granulocyte Percent A 0.2 % (0.0-0.0); Lymphocytes Absolute Auto 1.53 K/mm3 (1.10-4.50); Lymphocytes Percent Auto 17.6 % (18.0-42.0); Mean Corpuscular Hemoglobin 30.4 pg (27.0-31.0); Mean Corpuscular Volume 89.3 fL (78.0-102.0); Mean Platelet Volume 9.5 fl (9.2-11.8); Monocytes Absolute Auto 0.83 K/mm3 (0.10-0.90); Monocytes Percent Auto 9.6 % (2.0-11.0); Neutrophils Absolute Auto 6.11 K/mm3 (1.70-7.20); Neutrophils Percent Auto 70.3 % (50.0-70.0); Platelet Count Result 257 K/mm3 (150-420); Red Blood Count 4.41 M/mm3 (4.20-5.40); Red Cell Distribution Width 13.2 % (11.6-14.4); White Blood Count 8.7 K/mm3 (4.8-10.8)
[2024-07-19 17:57] LABS: Alanine Aminotransferase 21 U/L (14-59); Alkaline Phosphatase 91 U/L (46-116); Anion Gap 7 mmol/L (4-12); Aspartate Amino Transferase 18 U/L (15-37); Bilirubin,Total 0.8 mg/dL (0.00-1.00); Blood Urea Nitrogen 11 mg/dL (7-18); Calcium 10.7 mg/dL (8.5-10.1); Carbon Dioxide 33 mmol/L (21-32); Chloride 95 mmol/L (98-108); Estimated Glomerular Filt Rate > 60; Glucose 96 mg/dL (70-99); Osmolality Calculated 279 mOsm/kg (285-295); Potassium 4.9 mmol/L (3.5-5.1); Sodium 135 mmol/L (136-145); Total Protein 7.7 g/dL (6.4-8.2)
[2024-07-19 17:59] LABS: Folic Acid > 20.0 ng/mL (8.6->20); Vitamin B12 > 2000 pg/mL (193-986)
[2024-07-19 18:03] LABS: Thyroid Stimulating Hormone Reflex 35.52 u/IU/mL (0.36-3.74)
[2024-07-19 18:15] LABS: Free T4 Free Thyroxine Reflex 1.07 ng/dL (0.76-1.46)
[2024-07-20 06:48] LABS: Triglycerides 95 mg/dL (0-150)
[2024-07-20 06:55] LABS: Cholesterol 219 mg/dL (0-200); HDL Direct 74 mg/dL (40-60); LDL Cholesterol Calculated 126 mg/dL (<130)
[2024-07-28 09:33] LABS: PRA 5.89 ng/mL/h (0.25-5.82)
== END 2024-07-19 10:29 | disposition home or self-care (01) ==
LOC: CHSLAB 10:30
PROVIDERS: PCP Family Medicine; Visit Provider Family Medicine
DX: E53.8 Deficiency of other specified B group vitamins (principal); E03.9 Hypothyroidism, unspecified; E78.5 Hyperlipidemia, unspecified; I10 Essential (primary) hypertension
CPT/HCPCS: 36415; 80053; 80061; 82088; 82607; 82746; 84244; 84439; 84443; 85025

== ENCOUNTER 2025-04-02 09:55 | Outpatient (CLI) | payer MEDICARE, SELFPAY ==
--- NOTE | 2025-04-02 | S_PTH ---
PATIENT: Abby Vazquez LOC: [facility]#:[id number] AGE/SX: 74/F ROOM: RE04/02/[address]: Eric Don DO : 1950 BED: DIS: 04/02/2025 SPEC #: [id number] RECD: 04/02/25 10:14 STATUS: ROMAN BEAR #: [id number] ILIANA: 04/02/25 00:[address]: Eric Don DEPT: [facility] Surgical RECD BY: Linh Tran MLT, ([facility]) Tissues: A - Skin Bx Procedures: Hematoxylin and Eosin Stain Gross and Microscopic Level 4
--- OUTSIDE RECORDS SUMMARY | 2025-04-02 09:59 | XMS_ITS | Clinical Summary ---
Author Organization [facility] Address [address] [place] [address] Care Team Providers Care User Interface Artist Name Role Phone Oksana Correia NP Primary Care Provider [phone] Allergies No known active allergies Medications calcium carbonate-vitami n D3 (CALTRATE 600 + D) 1500 mg (600 mg elemental) -400 units per tabletIndication s:Prevention of Vitamin D Deficiency Take 1 tablet by mouth 2 (two) times a day Active cyanocobalamin (Vitamin B-12) 2,500 mcg tablet, sublingualIndica tions:Prevention of Vitamin B12 Deficiency Take 2,500 mcg by mouth 2 (two) times a day Active metoprolol tartrate (LOPRESSOR) 25 mg immediate release tablet Take 25 mg by mouth 2 (two) times a day Active lisinopril-hydro CHLOROthiazide (ZESTORETIC) 20-25 mg per tabletIndication s:hypertension Take 1 tablet by mouth daily Active atorvastatin (LIPITOR) 10 mg tablet Take 10 mg by mouth daily Active TURMERIC ORAL Take by mouth Active POTASSIUM ORAL Take by mouth Active Lactobacillus acidophilus (PROBIOTIC ORAL) Take by mouth Active vit A/vit C/vit E/zinc/copper (PRESERVISION AREDS ORAL) Take by mouth Active oxyCODONE (ROXICODONE) 5 mg immediate release tabletIndication s:Pain Take 1 tablet (5 mg total) by mouth every 6 (six) hours as needed for pain 28 tablet 08/09/2022 Active tiZANidine (ZANAFLEX) 4 mg tablet Take 1 tablet (4 mg total) by mouth every 6 (six) hours as needed for muscle spasms 30 tablet 1 08/09/2022 Active senna (SENOKOT) 8.6 mg tablet Take 1 tablet by mouth daily 30 tablet 11 08/09/2022 Active Active Problems Problem Noted Date Diagnosed Date Spinal stenosis, lumbar carla on, without neurogenic claudication 08/09/2022 Spinal stenosis of lumbar region 08/02/2022 Overview (08/02/2022): Added automatically from request for surgery [id number] Fall at home 05/08/2020 Assessment & Plan (05/08/2020 3:48 PM CDT): 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 Was using father's walker due to weakness, without training on proper use. - No injuries noted on exam - Pt appears steady ambulating in room - Decreased fatigue with exertion noted UTI (urinary tract infection) 05/06/2020 Assessment & Plan (05/08/2020 3:46 PM CDT): Hx of intermittent uncomplicated UTI in past. Visibly cloudy urine per pt upon admission, UA with 3+ LE, nitrites, 21-50 WBC. Prelim cx positive for Klebsiella variicola. - Started on CTX 1g while inpatient - Transition to oral cephalexin on d/c based on UCx susceptibilities Assessment & Plan (05/06/2020 7:49 PM CDT): Asymptomatic but UA with 3+ LE, nitrites, 21-50 WBC -follow up UClx Elevated serum creatinine 05/06/2020 Assessment & Plan (05/08/2020 3:47 PM CDT): Cr 1.17 on arrival, now 0.86. Last Cr 0.62 in 2016. Unclear baseline. - 500cc NS bolus yesterday, CTM through admission - Holding home lisinopril/HCTZ while inpatient, restarting lisinopril as outpatient - Recheck with PCP f/u Assessment & Plan (05/06/2020 7:50 PM CDT): Cr 1.17 on arrival, last Cr 0.62 in 2016. Unclear baseline. -recheck in AM Generalized weakness 05/05/2020 Assessment & Plan (05/08/2020 3:43 PM CDT): Likely 2/2 electrolyte abnormalities + poor PO intake/diarrhea. EKG showed new junctional rhythm with spontaneous conversion to 1st-degree AVB. TTE + for mild AR and AL with LVEF >70% and mild diastolic dysfunction. proBNP 10K. Trop neg x2. Last K 3.7, Mg 1.5, Na 132 - Weakness improved today, near baseline - Ambulating in room without aid - PT/OT with okay to d/c home - Will f/u with PCP next week Assessment & Plan (05/06/2020 7:46 PM CDT): Likely 2/2 electrolyte abnormalities + poor PO intake/diarrhea. EKG showed new junctional rhythm, which may be contributing. proBNP 10K. Trop neg x2. K 3.6, Mg 1.3, now replaced in ED with 1L LR + K 40, Mg 4 - now much improved today - will recheck labs in AM - PT/OT with okay to d/c home Hypomagnesemia 05/05/2020 Assessment & Plan (05/08/2020 3:44 PM CDT): Likely 2/2 diarrhea. S/p Mg 4 in ED. Most recent level 1.5 - 2mg MagSulfate for hypo-Mg + MagOx 400mg administered - Check levels as outpatient Assessment & Plan (05/06/2020 7:48 PM CDT): 2/2 diarrhea. S/p Mg 4 in ED -check in AM Opacity of lung on imaging study 05/05/2020 Assessment & Plan (05/08/2020 3:44 PM CDT): ?R lung base opacity, may represent PNA vs aspiration. Subtle on imaging, no clinical sxs of PNA. COVID and RVP negative. - Hold off on abx for now, f/u w/ PCP if sx worsen Assessment & Plan (05/06/2020 7:49 PM CDT): ?R lung base opacity, may represent PNA vs aspiration. Subtle on imaging, no clinical sxs of PNA. COVID and RVP negative. - hold off on abx for now Hypertension 05/05/2020 Assessment & Plan (05/08/2020 3:45 PM CDT): Patient normotensive today - Holding metop & lisin/HCTZ in setting of initial junctional rhythm and electrolyte abnormalities - Changed to outpatient lisinopril 40mg Assessment & Plan (05/06/2020 7:47 PM CDT): Patient normotensive today - hold metop & lisin/HCTZ for now Macular hole of both eyes 08/28/2019 Assessment & Plan (09/25/2019 9:00 AM REGULATOR INSPECTOR): status post (s/p) PPV OS by Dr Jimenes OD status post (s/p) PPV Dr Neal looks great May need MRx has local eye doctor in [place] Stop drops (gtts) Assessment & Plan (08/30/2019 12:37 PM CDT): POD1 Gtt instructions given Face down for [address] Hobbs next week [facility] in 1 month Assessment & Plan (08/28/2019 11:50 AM CDT): Status post (s/p) surgery OS OD new full thickness hole Risks, benefits, alternatives were discussed with patient including but not limited to infection, bleeding, retinal detachment, damage to eye, loss of vision, loss of eye, deformity, double vision, increased pressure in the eye, cataract progression, inflammation in the eye that can spread to the other eye, postoperative positioning, altitude/travel precautions should gas bubble injection be required, the guarded prognosis for vision, the potential need for further procedures, and that no guarantees can be made. The patient understands these risks and all questions were answered. The patient then elected to proceed OD Pseudophakia of both eyes 08/28/2019 Lamellar macular hole of both eyes 08/28/2019 Overview (08/28/2019): Added automatically from request for surgery [id number] Resolved Problems Problem Noted Date Diagnosed Date Resolved Date Diarrhea 05/05/2020 05/08/2020 Assessment & Plan (05/07/2020 10:14 AM CDT): Possible food poisoning vs viral gastroenteritis. Resolved with loperamide. - No diarrhea today, CTM bowel movements in setting of MgOx + MgS - Hold loperamide for now - Hold stool studies Assessment & Plan (05/06/2020 7:44 PM CDT): Possible food poisoning vs viral gastroenteritis. Resolved with loperamide. - no diarrhea today - Hold loperamide for now - hold stool studies Junctional rhythm 05/05/2020 05/08/2020 Assessment & Plan (05/07/2020 10:29 AM CDT): EKG with new junctional rhythm with retrograde P waves. Possibly related to electrolyte abn. proBNP 10K. Trop neg x2. Junctional rhythm resolved on repeat EKG, tele alarm for 1st-degree AVB. - Borderline 1st-degree AVB w/ AL interval ~200ms - TTE with EF >70% and grossly wnl - Hold metop - Replete electrolytes as above - CTM on tele Assessment & Plan (05/06/2020 7:48 PM CDT): EKG with new junctional rhythm with retrograde P waves. Possibly related to electrolyte abn. proBNP 10K. Trop neg x2. - resolved on repeat EKG - TTE with EF >70% and grossly wnl - Hold metop - Replete electrolytes - CTM on tele PVD (posterior vitreous detachment), right 08/28/2019 09/25/2019 Surgical History Surgery Date Site/Laterality Comments TONSILLECTOMY as a child CERVICAL DISCECTOMY 11/07/2016 - 11/06/2017 3 discs removed CATARACT EXTRACTION W/ INTRAOCULAR LENS IMPLANT and 10/2015 Bilateral ANKLE SURGERY VITRECTOMY 12/04/2018 Left Medical History Medical History Date Comments Personal history of arthritis Ar thritis - (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) Personal history of other di seases of the nervous system and sense organs History of Masterson's pals y - (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) HTN (hypertension) HLD (hyperlipidemia) Cervical spine degeneration Family History Medical History Relation Name Comments Hypertension Brother 1 Hypertension - (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) Coronary artery disease Brother 2 Ede nary Artery Disease - (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) Coronary artery disease Father Ede nary Artery Disease - (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) Dementia Father Family history of dementia - (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) Hypertension Father Hypertension - (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) Stroke Father Stroke Syndrome - (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) Breast cancer Maternal Grandmother Family history of malignant neoplasm of breast - (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) Hypertension Mother Hypertension - (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) Relation Name Status Comments Brother 1 Brother 2 Father Maternal Grandmother Mother Social History Tobacco Use Types Packs/Day Years Used Date Smoking Tobacco: Never Smokeless Tobacco: Never Tobacco Cessation:Counseling Given: Not Answered Alcohol Use Standard Drinks/Week Comments Yes 14 (1 standard drink = 0.6 oz pu re alcohol) wine or cocktail AUDIT-C Answer Date Recorded Q1: How often do you have a drink containing alc ohol? 2-4 times a month 08/09/2022 Q2: How many drinks containi ng alcohol do you have on a typical day when you are drinking? 1 or 2 08/09/2022 Q3: How often do you have si x or more drinks on one occasion? Never 08/09/2022 Comments No Sex and Gender Information Value Date Recorded Sex Assigned at Not on file Legal Sex Female 9:40 AM REGULATOR INSPECTOR Gender Identity Not on file Sexual Orientation Not on file Obstetrics History Last Filed Vital Signs Vital Sign Reading Time Taken Comments Blood Pressure 177/62 08/09/2022 11:49 AM CDT Pulse 64 08/09/2022 11:49 AM CDT Temperature 36.6 C (97.8 F) 08/09/2022 9:38 AM CDT Respiratory Rate 23 08/09/2022 11:49 AM CDT Oxygen Saturation 98% 08/09/2022 11:49 AM CDT Inhaled Oxygen Concentration - - Weight 90.5 kg (199 lb 8.3 oz) 08/09/2022 6:27 A M CDT Height 157.5 cm (5' 2) 08/09/2022 6:27 AM CDT Body Mass Index 36.49 08/09/2022 6:27 AM CDT Plan of Treatment Health Maintenance Due Date Last Done Comments Colon Cancer Screening-Colonoscopy 1950 Depression Screening 1950 Hepatitis C Screening 1950 Osteoporosis Screening-Bone Density Scan 1950 DTaP/Tdap/Td Vaccine (1 - Tdap) 1960 Hepatitis B Screening 1967 Pneumococcal vaccine 65+ (1 of 1 - PCV) 1999 Well Visit 65+ 2014 Fall Risk Assessment 08/09/2023 08/09/2022 Covid-19 Vaccine (5 - 2023-2 5 season) 2024 03/04/2022, 08/28/2021, 01/21/2021, Additional history exists Influenza Vaccine (Season Ended) 2025 08/10/20 21, 07/30/2020 Breast Cancer Screening-Mammogram Discontinued 014, 04/06/2013 Zoster Vaccine Completed 07/30/2020, 05/08, 03/27/2015 Procedures Procedure Name Priority Date/Time Associated Diagnosis Comments SCREENING MAMMOGRAM W JORDON Routine 04/12/2014 12:58 PM CDT from Last 3 Months or Most Recently Relevant to Health Maintenance Results * Screening Mammogram W Jordon (04/12/2014 12:58 PM CDT) Anatomical Region Laterality Modality Breast N/A Mammography 04/12/2014 12:5 8 PM CDT Narrative 04/15/2014 10:31 AM CDT TODD PEÑA M.D. FINAL REPORT ACC# Date Time Exam [id number] Apr 12, 2014 12:58:00 [facility] [id number] Bilateral screen w jordon Technologist(s): Rissa Joya; ; EXAMINATION: Mammogram Technique: Bilateral Full-Field Digital Screening Mammogram was performed. Views obtained: bilateral craniocaudal and bilateral mediolateral oblique. Computer Aided Detection was performed with [employer].3 version 9.3. Mammogram Findings: The present examination has been compared to prior imaging studies performed on 01/19/2010, and at [facility] on 04/06/2013 and 03/20/2012. There are scattered fibroglandular densities. There is no suspicious abnormality in either breast. IMPRESSION: Annual screening mammography is recommended. OVERALL FINAL ASSESSMENT: BI-RADS CATEGORY 1: Negative. Requested By: Scott Thurston M.D. Dictated By: TODD PEÑA M.D. on Apr 15 2014 10:31A This document has been electronically signed by: TODD PEÑA M.D. on Apr 15 2014 10:31A Procedure Note Provider, MD Tamara - 03/05/2017 TODD PEÑA M.D. FINAL REPORT ACC# Date Time Exam [id number] Apr 12, 2014 12:58:00 [facility] [id number] Bilateral screen w jordon Technologist(s): Rissa Joya; ; EXAMINATION: Mammogram Technique: Bilateral Full-Field Digital Screening Mammogram was performed. Views obtained: bilateral craniocaudal and bilateral mediolateral oblique. Computer Aided Detection was performed with [employer].3 version 9.3. Mammogram Findings: The present examination has been compared to prior imaging studies performed on 01/19/2010, and at [facility] on 04/06/2013 and 03/20/2012. There are scattered fibroglandular densities. There is no suspicious abnormality in either breast. IMPRESSION: Annual screening mammography is recommended. OVERALL FINAL ASSESSMENT: BI-RADS CATEGORY 1: Negative. Requested By: Scott Thurston M.D. Dictated By: TODD PEÑA M.D. on Apr 15 2014 10:31A This document has been electronically signed by: TODD PEÑA M.D. on Apr 15 2014 10:31A Historical Provider MD TAPIA MAMMO PROCEDURES Faith l Result from Last 3 Months or Most Recently Relevant to Health Maintenance Insurance [facility] MEDICARE ADVANTAGE [facility] Address: [address] [address] [place] [address] [facility] CHOICE PLUS [facility] HMO/PPO Address: [address] [address] [place] [address] [facility]IC[facility] Address: [address] [address] [place] [address] [facility] Address: [address] [address] [place] [address] [facility] CHOICE PLUS [facility] HMO/PPO Address: [facility] [address] [place] [address] Advance Directives For more information, please contact: [phone] Documents on File Type Date Recorded Patient Craft Artist Expl anation ADVANCE DIRECTIVE 12/05/2018 7:51 PM POWER OF HEAVY MACHINERY ASSEMBLER ADVANCE DIRECTIVE 12/04/2018 7:53 AM POWER OF HEAVY MACHINERY ASSEMBLER * Full Code (Latest Code Status on File) Date Activated Date Inactivated Comments 05/05/2020 9:18 PM 05/08/2020 8:42 PM * Full Code Date Activated Date Inactivated Comments 12/04/2018 7:18 AM 12/04/2018 5:56 PM Care Teams User Interface Artist Relationship Specialty Start Date End Date Oksana Correia NP [address] [place] [address] PCP - General Nurse Practitioner 06/15/22
--- OUTSIDE RECORDS SUMMARY | 2025-04-02 10:00 | XMS_ITS | CONTINUITY OF CARE DOCUMENT ---
Author Name vielka vora Address Unknown Organization [facility] Address [address] [place] [address] Phone [phone] Care Team Providers Care Web Marketing Strategist Name Role Phone .[facility] Un[facility] Unavailable INSURANCE PROVIDERS Payer name Policy type / Coverage type Loris red constitution party ID [employer] OPEN ACCESS Other [id number]
--- OUTSIDE RECORDS SUMMARY | 2025-04-02 10:00 | XMS_ITS | Referral Summary ---
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 Was using father's walker due [...] AVB. TTE + for mild AR and [place] with LVEF >70% and mild diastolic dysfunction. [...] 08/28/2019 Assessment & Plan (09/25/2019 9:00 AM PAINT TINTER): status post (s/p) PPV OS by Dr Jimense OD status post (s/p) PPV Dr Neal looks great May need MRx has local eye doctor in [place] Stop drops (gtts) Assessment & Plan (08/30/2019 12:37 PM CDT): POD1 Gtt instructions given Face down for [address] Hobbs next week [facility] Retina in 1 month Assessment & [...] (08/28/2019): Added automatically from request for surgery [id number] Resolved Problems Problem Noted Date Diagnosed Date [...] 1st-degree AVB. - Borderline 1st-degree AVB w/ [place] interval ~200ms - TTE with EF >70% [...] PVD (posterior vitreous detachment), right 08/28/2019 09/25/2019 Social History Tobacco Use Types Packs/Day Years [...] on file Legal Sex Female 9:40 AM PAINT TINTER Gender Identity Not on file Sexual Orientation Not on file Last Filed Vital Signs Vital Sign Reading [...] 08/09/2022 6:27 AM CDT Plan of Treatment Not on file Procedures Procedure Name Priority Date/Time Associated Diagnosis [...] M.D. FINAL REPORT ACC# Date Time Exam [id number] Apr 12, 2014 12:58:00 [facility] [id number] Bilateral screen w jordon Technologist(s): Rissa Joya; ; EXAMINATION: Mammogram Technique: Bilateral Full-Field Digital Screening Mammogram was performed. Views obtained: bilateral craniocaudal and bilateral mediolateral oblique. Computer Aided Detection was performed with [employer] 1.3 version 9.3. Mammogram Findings: The present examination has been compared to prior imaging studies performed on 01/19/2010, and at [facility] on 04/06/2013 and 03/20/2012. There are [...] M.D. FINAL REPORT ACC# Date Time Exam [id number] Apr 12, 2014 12:58:00 [facility] [id number] Bilateral screen w jordon Technologist(s): Rissa Joya; ; EXAMINATION: Mammogram Technique: Bilateral Full-Field Digital Screening Mammogram was performed. Views obtained: bilateral craniocaudal and bilateral mediolateral oblique. Computer Aided Detection was performed with [employer].3 version 9.3. Mammogram Findings: The present examination has been compared to prior imaging studies performed on 01/19/2010, and at [facility] on 04/06/2013 and 03/20/2012. There are scattered fibroglandular densities. There is no suspicious abnormality in either breast. IMPRESSION: Annual screening mammography is recommended. OVERALL FINAL ASSESSMENT: BI-RADS CATEGORY 1: Negative. Requested By: Scott Thurston M.D. Dictated By: TODD PEÑA M.D. on Apr 15 2014 10:31A This document has been electronically signed by: TODD PEÑA M.D. on Apr 15 2014 10:31A Historical Provider IMAurelia MAMMO PROCEDURES Faith l Result from Last 3 Months or Most Recently Relevant to Health Maintenance Insurance [facility] MEDIC[facility] ADVANTAGE [facility] Address: [place] [id number] CHOICE PLUS [facility] HMO/PPO Address: [facility] [address] [place] [address] [facility] Address: [place] [id number] [facility] Address: [address] [address] [place] [address] [employer] CHOICE PLUS [facility] H[facility]/PPO Address: [place] [address] Advance Directives For more information, please contact: [phone] Documents on File Type Date Recorded Patient Chief Marketing Officer Expl anation ADVANCE DIRECTIVE 12/05/2018 7:51 PM POWER OF ORNAMENTER HAND ADVANCE DIRECTIVE 12/04/2018 7:53 AM POWER OF ORNAMENTER HAND * Full Code (Latest Code Status on File) Date Activated Date Inactivated Comments 05/05/2020 9:18 PM 05/08/2020 8:42 PM * Full Code Date Activated Date Inactivated Comments 12/04/2018 7:18 AM 12/04/2018 5:56 PM Care Teams Automated Equipment Engineer Technician Relationship Specialty Start Date End Date Oksana Correia NP [address] [place] [address] PCP - General Nurse Practitioner 06/15/22
[2025-04-02 10:15] LABS: Basophils Absolute Auto 0.03 K/mm3 (0.00-0.10); Basophils Percent Auto 0.3 % (0.0-1.0); Eosinophils Absolute Auto 0.12 K/mm3 (0.02-0.50); Eosinophils Percent Auto 1.4 % (1.0-6.0); Hematocrit 35.7 % (35.0-42.0); Hemoglobin 12.2 g/dL (11.7-13.8); Immature Granulocyte Absolute 0.06 K/mm3 (0.00-0.00); Immature Granulocyte Percent A 0.7 % (0.0-0.0); Lymphocytes Absolute Auto 1.25 K/mm3 (1.10-4.50); Lymphocytes Percent Auto 14.3 % (18.0-42.0); Mean Corpuscular HGB Conc 34.2 g/dL (32-36); Mean Corpuscular Hemoglobin 30.7 pg (27.0-31.0); Mean Corpuscular Volume 89.9 fL (78.0-102.0); Mean Platelet Volume 9.3 fl (9.2-11.8); Monocytes Absolute Auto 0.87 K/mm3 (0.10-0.90); Monocytes Percent Auto 9.9 % (2.0-11.0); Neutrophils Absolute Auto 6.43 K/mm3 (1.70-7.20); Neutrophils Percent Auto 73.4 % (50.0-70.0); Platelet Count Result 295 K/mm3 (150-420); Red Blood Count 3.97 M/mm3 (4.20-5.40); Red Cell Distribution Width 12.1 % (11.6-14.4); White Blood Count 8.8 K/mm3 (4.8-10.8)
[2025-04-02 10:50] LABS: Alanine Aminotransferase 18 U/L (6-35); Albumin Level 4.5 g/dL (3.5-5.1); Alkaline Phosphatase 68 U/L (38-126); Anion Gap 9 mmol/L (4-12); Aspartate Amino Transferase 39 U/L (14-36); Blood Urea Nitrogen 19 mg/dL (7-17); Calcium 10.9 mg/dL (8.4-10.2); Carbon Dioxide 27 mmol/L (22-30); Chloride 88 mmol/L (98-107); Estimated Glomerular Filt Rate > 60; Glucose 101 mg/dL (65-110); Osmolality Calculated 260 mOsm/kg (285-295); Potassium 5.1 mmol/L (3.4-5.0); Sodium 124 mmol/L (137-145); Total Protein 7.2 g/dL (6.3-8.2)
[2025-04-02 11:56] LABS: Folic Acid > 20.0 ng/mL (2.76->20); Free T4 Free Thyroxine Reflex 2.03 ng/dL (0.78-2.19); Vitamin B12 > 1000.0 pg/mL (239-931)
== END 2025-04-02 09:56 | disposition home or self-care (01) ==
LOC: CHSLAB 09:56
PROVIDERS: PCP Family Medicine; Visit Provider Family Medicine
DX: G62.9 Polyneuropathy, unspecified (principal); E03.9 Hypothyroidism, unspecified; E53.8 Deficiency of other specified B group vitamins
CPT/HCPCS: 36415; 80053; 82607; 82746; 84439; 84443; 84480; 85025; 88305

== ENCOUNTER 2025-04-19 16:30 | Outpatient (NON) | payer MEDICARE, SELFPAY ==
--- NOTE | 2025-04-19 | S_PTH ---
PATIENT: Abby Vazquez LOC: [facility]#:[id number] AGE/SX: 74/F ROOM: RE04/19/[address]: Eric Don DO : 1950 BED: DIS: 04/19/2025 SPEC #: [id number] RECD: 04/22/25 08:58 STATUS: ROMAN BEAR #: [id number] ILIANA: 04/19/25 00:[address]: Eric Don DEPT: [facility] Surgical RECD BY: Linh Tran MLT, ([facility]) Tissues: A - Skin Bx Procedures: Hematoxylin and Eosin Stain Gross and Microscopic Level 4
--- OUTSIDE RECORDS SUMMARY | 2025-04-19 16:38 | XMS_ITS | Clinical Summary ---
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 Was using father's walker due [...] AVB. TTE + for mild AR and [place] with LVEF >70% and mild diastolic dysfunction. [...] 08/28/2019 Assessment & Plan (09/25/2019 9:00 AM COMMUNICATION CENTER OPERATOR): status post (s/p) PPV OS by Dr Jimenes OD status post (s/p) PPV Dr Neal looks great May need MRx has local eye doctor in [place] Stop drops (gtts) Assessment & Plan (08/30/2019 12:37 PM CDT): POD1 Gtt instructions given Face down for [address] Hobbs next week [facility] Retina in 1 month Assessment & Plan [...] (08/28/2019): Added automatically from request for surgery [id number] Resolved Problems Problem Noted Date Diagnosed Date [...] 1st-degree AVB. - Borderline 1st-degree AVB w/ [place] interval ~200ms - TTE with EF >70% [...] on file Legal Sex Female 9:40 AM COMMUNICATION CENTER OPERATOR Gender Identity Not on file Sexual Orientation [...] M.D. FINAL REPORT ACC# Date Time Exam [id number] Apr 12, 2014 12:58:00 [facility] [id number] Bilateral screen w jordon Technologist(s): Rissa Joya; ; EXAMINATION: Mammogram Technique: Bilateral Full-Field Digital Screening Mammogram was performed. Views obtained: bilateral craniocaudal and bilateral mediolateral oblique. Computer Aided Detection was performed with [employer].3 version 9.3. Mammogram Findings: The present examination has been compared to prior imaging studies performed on 01/19/2010, and at [facility] on 04/06/2013 and 03/20/2012. There are scattered [...] M.D. FINAL REPORT ACC# Date Time Exam [id number] Apr 12, 2014 12:58:00 [facility] [id number] Bilateral screen w jordon Technologist(s): Rissa Joya; ; EXAMINATION: Mammogram Technique: Bilateral Full-Field Digital Screening Mammogram was performed. Views obtained: bilateral craniocaudal and bilateral mediolateral oblique. Computer Aided Detection was performed with [employer].3 version 9.3. Mammogram Findings: The present examination has been compared to prior imaging studies performed on 01/19/2010, and at [facility] on 04/06/2013 and 03/20/2012. There are scattered [...] Most Recently Relevant to Health Maintenance Insurance [facility] MEDICARE ADVANTAGE [facility] CHOICE PLUS [facility] CHOICE PLUS Advance Directives For more information, please contact: [phone] Documents on File Type Date Recorded Patient Relocation Coordinator Expl anation ADVANCE DIRECTIVE 12/05/2018 7:51 PM POWER OF KILN TRANSFER OPERATOR ADVANCE DIRECTIVE 12/04/2018 7:53 AM POWER OF KILN TRANSFER OPERATOR * Full Code (Latest Code Status on File) Date Activated Date Inactivated Comments 05/05/2020 9:18 PM 05/08/2020 8:42 PM * Full Code Date Activated Date Inactivated Comments 12/04/2018 7:18 AM 12/04/2018 5:56 PM Care Teams Die Maker Apprentice Relationship Specialty Start Date End Date Oksana Correia NP [address] [place] [address] PCP - General Nurse Practitioner 06/15/22
--- OUTSIDE RECORDS SUMMARY | 2025-04-19 16:38 | XMS_ITS | Referral Summary ---
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 Was using father's walker due [...] 08/28/2019 Assessment & Plan (09/25/2019 9:00 AM BEHAVIOR SPECIALIST): status post (s/p) PPV OS by Dr Jimenes OD status post (s/p) PPV Dr Neal looks great May need MRx has local eye doctor in [place] Stop drops (gtts) Assessment & Plan (08/30/2019 12:37 PM CDT): POD1 Gtt instructions given Face down for [address] Hobbs next week [facility] Retina in 1 month Assessment & [...] (08/28/2019): Added automatically from request for surgery [id number] Resolved Problems Problem Noted Date Diagnosed Date [...] on file Legal Sex Female 9:40 AM BEHAVIOR SPECIALIST Gender Identity Not on file Sexual Orientation [...] M.D. FINAL REPORT ACC# Date Time Exam [id number] Apr 12, 2014 12:58:00 [facility] [id number] Bilateral screen w jordon Technologist(s): Rissa Joya; ; EXAMINATION: Mammogram Technique: Bilateral Full-Field Digital Screening Mammogram was performed. Views obtained: bilateral craniocaudal and bilateral mediolateral oblique. Computer Aided Detection was performed with [employer] 1.3 version 9.3. Mammogram Findings: The present examination has been compared to prior imaging studies performed on 01/19/2010, and at [facility] on 04/06/2013 and 03/20/2012. There are [...] M.D. FINAL REPORT ACC# Date Time Exam [id number] Apr 12, 2014 12:58:00 [facility] [id number] Bilateral screen w jordon Technologist(s): Rissa Joya; ; EXAMINATION: Mammogram Technique: Bilateral Full-Field Digital Screening Mammogram was performed. Views obtained: bilateral craniocaudal and bilateral mediolateral oblique. Computer Aided Detection was performed with [id number] version 9.3. Mammogram Findings: The present examination has been compared to prior imaging studies performed on 01/19/2010, and at [facility] on 04/06/2013 and 03/20/2012. There are [...] Most Recently Relevant to Health Maintenance Insurance [facility] ADVANTAGE [facility] Address: [place] [id number] CHOICE PL[facility]/PPO Address: [address] [place] [address] [place] [address] [facility] Address: [place] [id number] [facility] Address: [address] [address] [place] [address] [employer]US [facility] H[facility]/PPO Address: [place] [address] Advance Directives For more information, please contact: [phone] Documents on File Type Date Recorded Patient Sales Ambassador Expl anation ADVANCE DIRECTIVE 12/05/2018 7:51 PM POWER OF TAKE OUT WAITER ADVANCE DIRECTIVE 12/04/2018 7:53 AM POWER OF TAKE OUT WAITER * Full Code (Latest Code Status on File) Date Activated Date Inactivated Comments 05/05/2020 9:18 PM 05/08/2020 8:42 PM * Full Code Date Activated Date Inactivated Comments 12/04/2018 7:18 AM 12/04/2018 5:56 PM Care Teams Diet Consultant Relationship Specialty Start Date End Date Oksana Correia NP [address] [place] [address] PCP - General Nurse Practitioner 06/15/22
== END 2025-04-19 16:31 | disposition home or self-care (01) ==
LOC: CHSLAB 16:36
PROVIDERS: PCP Family Medicine; Visit Provider Family Medicine
DX: L82.1 Other seborrheic keratosis (principal)
CPT/HCPCS: 88305